=== PATIENT | male | born 1945 | race Caucasian/White ===

== ENCOUNTER 2023-06-06 23:18 | Emergency (ER) | payer MEDICARE, OTHER, SELFPAY ==
[2023-06-06 23:20] VITALS: BP 125/76; PULSE 109; RESP 26; TEMP 39.1; O2SAT 88; BMI 28.8
[2023-06-06 23:28] VITALS: BP 125/76; PULSE 110; RESP 24; TEMP 38.9; O2SAT 92
[2023-06-07] VITALS (7 sets, daily range): BP systolic 85–118; BP diastolic 55–71; PULSE 72–87; RESP 16–18; TEMP 36.6–36.9; O2SAT 2–99
--- NOTE | 2023-06-07 | EKG12_ITS ---
Test Reason : Blood Pressure : / mmHG Vent. Rate : 109 BPM Atrial Rate : 109 BPM P-R Int : 140 ms QRS Dur : 092 ms QT Int : 316 ms P-R-T Axes : 013 -30 017 degrees QTc Int : 425 ms Poor data quality, interpretation may be adversely affected Sinus tachycardia Left axis deviation Abnormal ECG Confirmed by ALIZA MIRANDA, SAMANTHA ([id number]), digital editor KVNG HOPKINS ([id number]) on 06/07/2023 12:21:14 PM Referred By: Confirmed By:SAMANTHA ABRAMS MD
--- NOTE | 2023-06-07 00:02 | ED.VIS.GI ---
HPI HPI - GI History of Present Illness Chief Complaint: Alt LOC Informant: patient and spouse/S.O. Nausea/Vomiting/Emesis GI Symptom: Positive for Nausea and Vomiting Onset: Days (3; occurred 3 days ago but not since) Quality: Positive for Nonbilious Diarrhea/Melena/Hematochezia GI Symptom: Negative for Diarrhea, Melena or Hematochezia Narrative Narrative: Patient had some vomiting a couple days ago, none since then but today he has been having chills/rigors and a fever at home up to 102, and feeling extremely weak to the point where he cannot stand even with assistance. Therefore family called EMS to have him brought and evaluated. He denies any cough or shortness of breath. He has had some nasal congestion but no other URI symptoms. He denies having any abdominal pain, trouble urinating, or abnormal bowel movements. No chest discomfort or upper back discomfort, but when asked about more details regarding pain, he states a couple days ago he did remember having some pain somewhere in his low back but it went away. He and states that several months ago he had a gallbladder surgery that was not completed, and he needs to be evaluated by a subspecialist to see if he is a candidate for a more complicated surgery to resect his gallbladder since it is attached to the intestine. [facility] Medical History (Updated 06/07/23 @ 01:[address] 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 Louann Montes MD) Mother Depression Hypertension Father Heart disease Alzheimer disease Surgical History (Updated 06/07/23 @ 00:[address] Louann Montes MD) History of lithotripsy S/P appendectomy S/P tonsillectomy and adenoidectomy Status post hernia repair Social History Smoking Status: Former smoker alcohol intake: current alcohol intake frequency: a few times a week substance use type: does not use ROS ROS ED Constitutional Constitutional ED: Reports chills, fatigue, fever(s) and lethargy Eyes Eyes: Denies change in vision or diplopia ENT ENT ED: Reports nasal congestion; Denies rhinorrhea or sore throat Cardiovascular Cardiovascular: Denies chest pain or palpitations Respiratory/Chest Respiratory/Chest: Denies cough or dyspnea Gastrointestinal Gastrointestinal: Reports nausea and vomiting; Denies abdominal pain or diarrhea Genitourinary Genitourinary ED: Denies dysuria or hematuria Musculoskeletal Musculoskeletal: Denies back pain or neck pain Integumentary Denies abscess or rash Neurologic Neurologic: Denies headache(s), paresthesias or weakness Psychiatric Psychiatric: Denies anxiety or suicidal thoughts EXAM Physical Exam Const Vital Signs: 06/06/23 23:20 06/06/23 23:28 06/06/23 23:32 Temperature 102.4 F H 102.1 F H Temperature Source Oral Oral Pulse Rate 109 H 110 H Respiratory Rate 26 H 24 H Respiratory Effort Normal Non-Labored Respiratory Pattern Normal Blood Pressure 125/76 H 125/76 H Blood Pressure Mean 92 92 Pulse Ox 88 92 Oxygen Delivery Method Room Air Nasal Cannula Oxygen Flow Rate (L/min) 2 06/07/23 00:06 06/07/23 03:31 06/07/23 05:04 Temperature 98.5 F Temperature Source Oral Pulse Rate 87 79 Respiratory Rate 18 17 Respiratory Effort Respiratory Pattern Blood Pressure 85/55 L 94/59 L Blood Pressure Mean 65 70 Pulse Ox 2 96 97 Oxygen Delivery Method Nasal Cannula Room Air Nasal Cannula Oxygen Flow Rate (L/min) 2 06/07/23 05:05 06/07/23 06:34 Temperature 97.9 F 97.8 F Temperature Source Oral Temporal Pulse Rate 72 87 Respiratory Rate 16 16 Respiratory Effort Respiratory Pattern Blood Pressure 94/59 L 100/60 Blood Pressure Mean 70 73 Pulse Ox 97 98 Oxygen Delivery Method Venturi Mask Oxygen Flow Rate (L/min) 2 Positive well nourished and well developed General Appearance ED: well developed and NAD HEENT Reports moist mucous membranes normocephalic and atraumatic Eyes PERRL and EOMs intact bilaterally Neck full ROM, no lymphadenopathy and supple Resp normal respiratory effort and clear to auscultation bilaterally Cardio regular rate, regular rhythm and no murmurs Rate: tachycardic GI non-distended GI Narrative: Mild tenderness without guarding or rebound across the lower abdomen, no right upper quadrant tenderness. No jaundice. Auscultation: normoactive bowel sounds Palpation: soft Back/Spine no CVA tenderness General Back: other FROM Extremity normal to inspection General Extremety ED: Negative for edema, pulses abnormal or tenderness General Extremity: Negative for edema or pulses abnormal Neuro oriented x3, CN's II-XII intact bilaterally and no sensory deficits noted Neuro Narrative: Extremely weak, diffuse and nonlateralizing. Sensorium / Orientation: awake and alert Motor Exam: general weakness Skin no rashes or lesions noted and no wounds MDM MDM MDM Narrative Medical decision making narrative: Septic work-up obtained, in addition to getting liver enzymes due to the patient's presenting gallbladder issues. He has a mild leukocytosis, his urine appears to be potentially the source, as the 1 view chest x-ray on my interpretation negative for pneumonia, radiology in agreement, but I also did send him for a CT of the abdomen/pelvis. He has a history of IV contrast dye reaction, so we did it without contrast. I reviewed the images and the report and I agree with it, basically consistent with right ureterolithiasis but it is a fairly large stone at 12 X 10 mm, with moderate right-sided hydronephrosis even though he clinically does not have any CVA tenderness. We do not have any male urology coverage tonight/this weekend, and the patient sees Dr. Seaman at [facility] for urology. He was given IV fluids here, fever reduction, and empiric Rocephin for antibiotics. His lactate is within normal limits. He is okay trying to go to [facility] to see his urologist since we do not have one here. I discussed with Dr. Seaman. He agrees the patient needs to be transferred and maintained n.p.o. so that he can place a stent in the morning at [facility]. He asked that we call the hospitalist for admission/acceptance. In doing this, the hospital tells us that they do not have any available beds and are not able to accept him right now. Given that his urologist is relatively local and available to perform the recommended urgent procedure, we will continue to care for him under observation, starting at 0245, in our department until they have a bed available, as they have accepted the patient for transfer when they do have an open available bed, but do not want to take him in their ED at this time. In observing the patient he was given more IV fluids, temperatures come down to 97.9, blood pressure 100/66, patient is feeling fairly well, better. Discussed again with Dr. Seaman around 7 AM since we had not heard anything from anyone, he was expecting to take the patient to the OR at 7:30 AM. He has a limited timeframe that he can take the patient, he states he is accepting the patient directly to same-day surgery, so staff is trying to make calls to get him transported there [facility]. History & Record Review Additional record(s) reviewed:: No prior records (No records available at our facility) Lab Data Attestation: I reviewed the patient's lab results. Labs: Laboratory Results - last 24 hr 06/06/23 06/06/23 06/06/23 23:35 23:35 23:35 WBC 11.4 H RBC 4.68 Hgb 13.7 Hct 41.1 MCV 87.8 MCH 29.3 MCHC 33.3 RDW Std Deviation 46.2 H RDW Coeff of Jonna 14.6 Plt Count 137 L MPV 10.0 Immature Gran % (Auto) 1.200 H Neut % (Auto) 95.4 H Lymph % (Auto) 2.5 L Mills % (Auto) 0.8 Eos % (Auto) 0.0 Baso % (Auto) 0.1 Absolute Neuts (auto) 10.8 H Absolute Lymphs (auto) 0.28 L Nucleated RBC % 0 Differential Comment SCANNED PT 17.3 H INR 1.4 APTT 38.2 H Sodium 135 L Cancelled Potassium 3.4 L Cancelled Chloride 105 Carbon Dioxide Anion Gap BUN Creatinine Estim Creat Clear Calc Est GFR (MDRD) Af Amer Est GFR (MDRD) Non-Af BUN/Creatinine Ratio Glucose Lactic Acid Calcium Total Bilirubin AST ALT Alkaline Phosphatase Total Protein Albumin Globulin Albumin/Globulin Ratio Lipase Urine Color Urine Clarity Urine pH Ur Specific Basalt Urine Protein Urine Glucose (UA) Urine Ketones Urine Occult Blood Urine Nitrite Urine Bilirubin Urine Urobilinogen Ur Leukocyte Esterase Urine RBC Urine WBC Ur Squamous Epith Cells Urine Bacteria Urine Mucus 06/06/23 06/06/23 06/06/23 23:35 23:35 23:35 WBC RBC Hgb Hct MCV MCH MCHC RDW Std Deviation RDW Coeff of Jonna Plt Count MPV Immature Gran % (Auto) Neut % (Auto) Lymph % (Auto) Mills % (Auto) Eos % (Auto) Baso % (Auto) Absolute Neuts (auto) Absolute Lymphs (auto) Nucleated RBC % Differential Comment PT INR APTT Sodium Potassium Chloride Cancelled Carbon Dioxide 23.0 Cancelled Anion Gap 7 Cancelled BUN 29 H Creatinine Estim Creat Clear Calc Est GFR (MDRD) Af Amer Est GFR (MDRD) Non-Af BUN/Creatinine Ratio Glucose Lactic Acid Calcium Total Bilirubin AST ALT Alkaline Phosphatase Total Protein Albumin Globulin Albumin/Globulin Ratio Lipase Urine Color Urine Clarity Urine pH Ur Specific Basalt Urine Protein Urine Glucose (UA) Urine Ketones Urine Occult Blood Urine Nitrite Urine Bilirubin Urine Urobilinogen Ur Leukocyte Esterase Urine RBC Urine WBC Ur Squamous Epith Cells Urine Bacteria Urine Mucus 06/06/23 06/06/23 06/06/23 23:35 23:35 23:35 WBC RBC Hgb Hct MCV MCH MCHC RDW Std Deviation RDW Coeff of Jonna Plt Count MPV Immature Gran % (Auto) Neut % (Auto) Lymph % (Auto) Mills % (Auto) Eos % (Auto) Baso % (Auto) Absolute Neuts (auto) Absolute Lymphs (auto) Nucleated RBC % Differential Comment PT INR APTT Sodium Potassium Chloride Carbon Dioxide Anion Gap BUN Cancelled Creatinine 1.77 H Cancelled Estim Creat Clear Calc 34.35 Cancelled Est GFR (MDRD) Af Amer 48 L Est GFR (MDRD) Non-Af BUN/Creatinine Ratio Glucose Lactic Acid Calcium Total Bilirubin AST ALT Alkaline Phosphatase Total Protein Albumin Globulin Albumin/Globulin Ratio Lipase Urine Color Urine Clarity Urine pH Ur Specific Basalt Urine Protein Urine Glucose (UA) Urine Ketones Urine Occult Blood Urine Nitrite Urine Bilirubin Urine Urobilinogen Ur Leukocyte Esterase Urine RBC Urine WBC Ur Squamous Epith Cells Urine Bacteria Urine Mucus 06/06/23 06/06/23 06/06/23 23:35 23:35 23:35 WBC RBC Hgb Hct MCV MCH MCHC RDW Std Deviation RDW Coeff of Jonna Plt Count MPV Immature Gran % (Auto) Neut % (Auto) Lymph % (Auto) Mills % (Auto) Eos % (Auto) Baso % (Auto) Absolute Neuts (auto) Absolute Lymphs (auto) Nucleated RBC % Differential Comment PT INR APTT Sodium Potassium Chloride Carbon Dioxide Anion Gap BUN Creatinine Estim Creat Clear Calc Est GFR (MDRD) Af Amer Cancelled Est GFR (MDRD) Non-Af 40 L Cancelled BUN/Creatinine Ratio 16.4 Cancelled Glucose 184 H Lactic Acid Calcium Total Bilirubin AST ALT Alkaline Phosphatase Total Protein Albumin Globulin Albumin/Globulin Ratio Lipase Urine Color Urine Clarity Urine pH Ur Specific Basalt Urine Protein Urine Glucose (UA) Urine Ketones Urine Occult Blood Urine Nitrite Urine Bilirubin Urine Urobilinogen Ur Leukocyte Esterase Urine RBC Urine WBC Ur Squamous Epith Cells Urine Bacteria Urine Mucus 06/06/23 06/06/23 06/06/23 23:35 23:35 23:35 WBC RBC Hgb Hct MCV MCH MCHC RDW Std Deviation RDW Coeff of Jonna Plt Count MPV Immature Gran % (Auto) Neut % (Auto) Lymph % (Auto) Mills % (Auto) Eos % (Auto) Baso % (Auto) Absolute Neuts (auto) Absolute Lymphs (auto) Nucleated RBC % Differential Comment PT INR APTT Sodium Potassium Chloride Carbon Dioxide Anion Gap BUN Creatinine Estim Creat Clear Calc Est GFR (MDRD) Af Amer Est GFR (MDRD) Non-Af BUN/Creatinine Ratio Glucose Cancelled Lactic Acid 1.8 Calcium 8.9 Cancelled Total Bilirubin 1.40 H Cancelled AST 31 ALT Alkaline Phosphatase Total Protein Albumin Globulin Albumin/Globulin Ratio Lipase Urine Color Urine Clarity Urine pH Ur Specific Basalt Urine Protein Urine Glucose (UA) Urine Ketones Urine Occult Blood Urine Nitrite Urine Bilirubin Urine Urobilinogen Ur Leukocyte Esterase Urine RBC Urine WBC Ur Squamous Epith Cells Urine Bacteria Urine Mucus 06/06/23 06/06/23 06/06/23 23:35 23:35 23:35 WBC RBC Hgb Hct MCV MCH MCHC RDW Std Deviation RDW Coeff of Jonna Plt Count MPV Immature Gran % (Auto) Neut % (Auto) Lymph % (Auto) Mills % (Auto) Eos % (Auto) Baso % (Auto) Absolute Neuts (auto) Absolute Lymphs (auto) Nucleated RBC % Differential Comment PT INR APTT Sodium Potassium Chloride Carbon Dioxide Anion Gap BUN Creatinine Estim Creat Clear Calc Est GFR (MDRD) Af Amer Est GFR (MDRD) Non-Af BUN/Creatinine Ratio Glucose Lactic Acid Calcium Total Bilirubin AST Cancelled ALT 33 Cancelled Alkaline Phosphatase 83 Cancelled Total Protein 6.9 Albumin Globulin Albumin/Globulin Ratio Lipase Urine Color Urine Clarity Urine pH Ur Specific Basalt Urine Protein Urine Glucose (UA) Urine Ketones Urine Occult Blood Urine Nitrite Urine Bilirubin Urine Urobilinogen Ur Leukocyte Esterase Urine RBC Urine WBC Ur Squamous Epith Cells Urine Bacteria Urine Mucus 06/06/23 06/06/23 06/06/23 23:35 23:35 23:35 WBC RBC Hgb Hct MCV MCH MCHC RDW Std Deviation RDW Coeff of Jonna Plt Count MPV Immature Gran % (Auto) Neut % (Auto) Lymph % (Auto) Mills % (Auto) Eos % (Auto) Baso % (Auto) Absolute Neuts (auto) Absolute Lymphs (auto) Nucleated RBC % Differential Comment PT INR APTT Sodium Potassium Chloride Carbon Dioxide Anion Gap BUN Creatinine Estim Creat Clear Calc Est GFR (MDRD) Af Amer Est GFR (MDRD) Non-Af BUN/Creatinine Ratio Glucose Lactic Acid Calcium Total Bilirubin AST ALT Alkaline Phosphatase Total Protein Cancelled Albumin 3.2 Cancelled Globulin 3.7 Cancelled Albumin/Globulin Ratio 0.9 Lipase Urine Color Urine Clarity Urine pH Ur Specific Basalt Urine Protein Urine Glucose (UA) Urine Ketones Urine Occult Blood Urine Nitrite Urine Bilirubin Urine Urobilinogen Ur Leukocyte Esterase Urine RBC Urine WBC Ur Squamous Epith Cells Urine Bacteria Urine Mucus 06/06/23 23:35 WBC RBC Hgb Hct MCV MCH MCHC RDW Std Deviation RDW Coeff of Jonna Plt Count MPV Immature Gran % (Auto) Neut % (Auto) Lymph % (Auto) Mills % (Auto) Eos % (Auto) Baso % (Auto) Absolute Neuts (auto) Absolute Lymphs (auto) Nucleated RBC % Differential Comment PT INR APTT Sodium Potassium Chloride Carbon Dioxide Anion Gap BUN Creatinine Estim Creat Clear Calc Est GFR (MDRD) Af Amer Est GFR (MDRD) Non-Af BUN/Creatinine Ratio Glucose Lactic Acid Calcium Total Bilirubin AST ALT Alkaline Phosphatase Total Protein Albumin Globulin Albumin/Globulin Ratio Cancelled Lipase 16 Urine Color Yellow Urine Clarity Cloudy Urine pH 6.0 Ur Specific Basalt 1.020 Urine Protein 100 H Urine Glucose (UA) Normal Urine Ketones 15 H Urine Occult Blood 250 H Urine Nitrite Negative Urine Bilirubin Negative Urine Urobilinogen 1 H Ur Leukocyte Esterase 500 H Urine RBC 50-100 SEEN Urine WBC >100 SEEN Ur Squamous Epith Cells 0 SEEN Urine Bacteria 3+ Urine Mucus 0 SEEN Radiography Diagnostic Testing: Clinical Impression(s) from Imaging Studies Abdomen/Pelvis CT 06/07/23 00:47 IMPRESSION: 1. 12 x 10 mm right ureteropelvic junction calculus resulting in mild to moderate right-sided hydronephrosis. 2. Additional nonobstructing bilateral renal calculi. 3. Simple appearing bilateral renal cysts. No further follow-up is necessary. 4. Peripherally calcified structures in the joyce hepatis, potentially representing choledocholithiasis. Dedicated MRCP imaging is recommended for further evaluation. 5. Descending and sigmoid colonic diverticulosis without evidence of acute diverticulitis. 6. Emphysematous change of the lung bases with bibasilar scar versus atelectasis 7. Small fat-containing umbilical hernia without bowel involvement. Electronically Signed: Dennys Kent MD at 1:26 EDT , Chest X-Ray 06/07/23 01:00 IMPRESSION: No acute cardiopulmonary disease Electronically Signed: Dennys Kent MD at 1:13 EDT , Rhythm Strip Rhythm Strip: Sinus Tach Rate: 110 Ectopy: None EKG Initial EKG: Attestation: I personally reviewed and interpreted this EKG as follows: Interpretation: No Acute Injury Pattern and Sinus Tachycardia Management Discussion w/another healthcare provider: Medical Registrar Discharge Plan Triage Chief Complaint: Alt LOC ED Provider: Anselmo Rodriguez Dx/Rx/DC Orders Clinical Impression: Complicated UTI (urinary tract infection), Ureterolithiasis, Sepsis Prescriptions: No Action tamsulosin [Flomax] 0.4 mg capsule 0.4 mg PO DAILY Lumigan 0.01 % drops 1 drp EACH EYE DAILY Primary Care Provider: Josy Cummings Referrals: Josy Cummings, [Primary Care Provider] - Disposition Disposition: Acute Care Hospital [facility]
[2023-06-07 00:12] LABS: Mucous, Urine 0 SEEN /hpf (<or=2+); Squamous Epithelial Cells - UA 0 SEEN /hpf (0-5)
[2023-06-07 00:13] LABS: Color, Urine Yellow (Yellow); Glucose, Dipstick Normal (Normal); Ketone-Dipstick 15 mg/dl (Negative); Leukocyte Esterase-Dipstick 500 /ul (Negative); Nitrite-Dipstick Negative (Negative); Occult Blood-Urine 250 /ul (Negative); Protein-Dipstick 100 mg/dl (Negative); Urine Bilirubin Dipstick Negative (Negative); Urine Clarity Cloudy (Clear); Urine Urobilinogen 1 mg/dl (Normal)
[2023-06-07] MEDS: 0.9% Normal Saline (1000mL) 1,000 ML 999 ML IV ×2 (00:17→03:28)
[2023-06-07] MEDS: Acetaminophen 500 MG Tablet 1000 MG PO (00:17)
[2023-06-07 00:18] LABS: Bacteria 3+ /hpf (None Seen); Red Blood Cells-Urine 50-100 SEEN /hpf (0-5); White Blood Cells >100 SEEN /hpf (0-5)
[2023-06-07 00:22] LABS: International Normalized Ratio 1.4; Prothrombin Time (Protime)PT. 17.3 SECONDS (11.7-14.9)
[2023-06-07 00:24] LABS: Partial Thromboplast Time 38.2 Seconds (24.1-36.2)
[2023-06-07 00:29] LABS: Absolute Lymphocyte Count 0.28 X10^3/uL (0.83-4.51); Absolute Neutrophil Count 10.8 X10^3/uL (2.0-7.7); Basophil# 0.01 X10^3/uL; Basophil% 0.1 % (0-1); Hematocrit 41.1 % (40-54); Hemoglobin 13.7 g/dL (13.0-16.5); Lymphocyte # 0.28 X10^3/ul (0.83-4.51); Lymphocyte % 2.5 % (19-41); Mean Corp Hgb Conc 33.3 g/dL (32-36); Mean Corpuscular Hgb 29.3 pg (27.0-32.0); Mean Corpuscular Volume 87.8 fL (80-94); Monocyte# 0.09 X10^3/uL; Monocyte% 0.8 % (0-10); NRBC Flagged by Analyzer 0 % (0-5); Neutrophil # 10.83 X10^3/uL (2.7-7.7); Neutrophil % 95.4 % (47-70); POSITIVE DIFFERENTIAL YES; POSITIVE MORPHOLOGY YES; Platelet Count 137 K/mm3 (150-450); RBC Distribution Width CV 14.6 % (11.6-14.6); RBC Distribution Width SD 46.2 fl (35.1-43.9); Red Blood Count 4.68 M/mm3 (4.6-6.2); White Blood Count 11.4 K/mm3 (4.4-11.0)
[2023-06-07 00:30] LABS: ALB/GLOB Ratio 0.9 RATIO (0.9-2.4); AST(SGOT) 31 U/L (15-37); Alanine Aminotransfer ALT/SGPT 33 U/L (16-61); Albumin, Serum 3.2 g/dL (3.2-5.0); Alkaline Phosphatase 83 U/L (45-117); Anion Gap 7 (5-15); BUN 29 mg/dL (7-18); BUN/Creat Ratio 16.4 RATIO (10-20); Calcium,Total 8.9 mg/dL (8.5-10.1); Chloride 105 mmol/L (98-107); Creatinine, Serum 1.77 mg/dL (0.70-1.30); EST Glomerular Filtration Rate 40 mL/min (>60); Est Glom Filt Rate - Afr Amer 48 mL/min (>60); Estimated Creatinine Clearance 34.35 ml/min; Globulin 3.7 g/dL (2.2-4.2); Glucose 184 mg/dL (74-106); Lactic Acid 1.8 mmol/L (0.4-1.9); Lipase 16 U/L (13-75); Potassium 3.4 mmol/L (3.5-5.1); Protein, Total 6.9 g/dL (6.4-8.2); Sodium Level 135 mmol/L (136-145)
[2023-06-07 00:34] LABS: Differential Indicated SCAN CRITERIA MET
--- NOTE | 2023-06-07 00:47 | CT_ITS ---
STUDY: CT ABDOMEN AND PELVIS WITH CONTRAST REASON FOR EXAM: Male, 77 years old. Lower abdominal pain, nausea and vomiting RADIATION DOSAGE (If Supplied By Facility): CTDIvol = ( 9.46 ) mGy, DLP = ( 546.09 ) mGycm TECHNIQUE: Spiral CT imaging of the abdomen and pelvis was performed with intravenous contrast material (100mL Isovue-370 / ), followed by coronal and sagittal reformatting. Individualized dose optimization techniques were used for this CT. COMPARISON: No relevant priors. FINDINGS: LOWER CHEST: Bilateral dependent atelectasis versus scar formation at the lung bases. Mild emphysematous change at the lung bases. Normal heart. Normal pericardium. LIVER: Normal GALLBLADDER AND BILIARY TREE: Gallbladder is surgically absent. There are rounded hyperdensities in the joyce hepatis with central hypoattenuation.. Normal biliary ductal system. SPLEEN: Normal PANCREAS: Normal ADRENAL GLANDS: Normal KIDNEYS AND URETERS: There are hypoattenuated lesions within both kidneys measuring near water density. There is mild to moderate right perinephric stranding. There is mild to moderate right-sided hydronephrosis. There is a staghorn calculus within the mid right renal pelvis. There is a 1.2 x 1.0 cm calculus at the right ureteropelvic junction. The remaining ureter is unremarkable. There are calcifications within the left renal pelvic calyceal system. There is an extrarenal pelvis on the left. BOWEL: There is a small to moderate hiatal hernia. Normal small bowel. Normal appendix. There is diverticular disease of descending and sigmoid colonic segments without localized inflammation.. PERITONEUM: No free intraperitoneal air or fluid. No intra-abdominal fluid collection. LYMPH NODES: No mesenteric, retroperitoneal, or pelvic lymphadenopathy. VESSELS: Mild atherosclerotic plaque within the abdominal vasculature. URINARY BLADDER: Normal REPRODUCTIVE ORGANS: Normal ABDOMINAL WALL: Small fat-containing umbilical hernia without bowel involvement. BONES: Normal CT/Abdomen/Pelvis without Cont IMPRESSION: 1. 12 x 10 mm right ureteropelvic junction calculus resulting in mild to moderate right-sided hydronephrosis. 2. Additional nonobstructing bilateral renal calculi. 3. Simple appearing bilateral renal cysts. No further follow-up is necessary. 4. Peripherally calcified structures in the joyce hepatis, potentially representing choledocholithiasis. Dedicated MRCP imaging is recommended for further evaluation. 5. Descending and sigmoid colonic diverticulosis without evidence of acute diverticulitis. 6. Emphysematous change of the lung bases with bibasilar scar versus atelectasis 7. Small fat-containing umbilical hernia without bowel involvement. Electronically Signed: Dennys Kent MD at 1:26 EDT ,
--- NOTE | 2023-06-07 01:00 | RAD_ITS ---
EXAM: XR Chest 1 View INDICATION: Male, 77 years old. Fever. Vomiting. TECHNIQUE: Single AP view COMPARISON: None FINDINGS: DEVICES: None LUNGS: No confluent air space opacity. No concerning pulmonary nodule. No pleural effusion or pneumothorax. MEDIASTINUM: Borderline cardiomegaly. Mediastinal silhouette is within normal limits.. No central pulmonary vascular congestion. Calcification of the aortic arch. SKELETAL STRUCTURES: No acute skeletal abnormality. Mild multilevel degenerative change of the spine. UPPER ABDOMEN: Unremarkable RAD/Chest 1 View (Portable) IMPRESSION: No acute cardiopulmonary disease Electronically Signed: Dennys Kent MD at 1:13 EDT ,
[2023-06-07 01:02] LABS: Differential Comment SCANNED
[2023-06-07] MEDS: Ceftriaxone 1 GM/50 ML BAG IV (02:03)
--- NOTE | 2023-06-07 07:10 | NURSING ---
CALLED DR GUERRIER'S OFFICE. LEFT A MESSAGE
--- NOTE | 2023-06-07 07:11 | NURSING ---
CALLED [facility]. HAD DR FAREED KARIMI
--- NOTE | 2023-06-07 07:25 | NURSING ---
CALLED [facility], ETA IS 30 TO 45 MIN
[2023-06-07] MEDS: fentaNYL 100 MCG/2 ML Ampul 25 MCG IV (08:13)
--- NOTE | 2023-06-07 20:10 | ED.RN ---
lab called with critical lab results. blood cultures positive for gram negative rods, spoke with Dr. Echevarria suggesting patient presents back to the ER or [facility] for treatment
== END 2023-06-07 08:34 | disposition short-term general hospital (02) ==
PROVIDERS: Emergency Provider Emergency Medicine; PCP Internal Medicine; Visit Provider Emergency Medicine
DX: N13.6 Pyonephrosis (principal); Z87.891 Personal history of nicotine dependence
CPT/HCPCS: 99285; 71045; 74176; 80053; 81001; 83605; 83690; 85025; 85610; 85730; 87040; 87077; 87086; 87088; 87186; 87811; 93005; J7030; A4216

== ENCOUNTER 2023-06-07 21:55 | Inpatient (IN) | payer MEDICARE, OTHER, SELFPAY ==
[2023-06-07 21:56] VITALS: BP 111/74; PULSE 78; RESP 17; TEMP 36.4; O2SAT 96
[2023-06-07 23:15] VITALS: RESP 16; O2SAT 99
[2023-06-07 23:26] LABS: Absolute Lymphocyte Count 0.46 X10^3/uL (0.83-4.51); Absolute Neutrophil Count 12.5 X10^3/uL (2.0-7.7); Basophil# 0.02 X10^3/uL; Basophil% 0.1 % (0-1); Hematocrit 36.5 % (40-54); Lymphocyte # 0.46 X10^3/ul (0.83-4.51); Lymphocyte % 3.4 % (19-41); Mean Corp Hgb Conc 32.9 g/dL (32-36); Mean Corpuscular Hgb 29.2 pg (27.0-32.0); Mean Corpuscular Volume 88.8 fL (80-94); Mean Platelet Vol. 10.8 fl (6.2-12.0); Monocyte# 0.42 X10^3/uL; Monocyte% 3.1 % (0-10); NRBC Flagged by Analyzer 0 % (0-5); Neutrophil % 92.4 % (47-70); POSITIVE DIFFERENTIAL YES; Platelet Count 118 K/mm3 (150-450); RBC Distribution Width CV 14.8 % (11.6-14.6); RBC Distribution Width SD 48.3 fl (35.1-43.9); Red Blood Count 4.11 M/mm3 (4.6-6.2); White Blood Count 13.5 K/mm3 (4.4-11.0)
--- NOTE | 2023-06-07 23:29 | EDS_ITS ---
HPI History of Present Illness Chief Complaint: Abn Labs Informant: patient Narrative Narrative: Patient asked to come back because of positive blood cultures. He is feeling much better than he was yesterday. He was seen here last night by myself, transferred to [facility] for a large kidney stone associated with infection and high fevers, as blood cultures returned positive. He received a stent early this morning in the right ureter, and has been doing much better ever since. He is on Pyridium. He is having no pain in his abdomen, flank, back. He is not urinating blood. He does not have any issues urinating. He still feels a little malaised and weak but is much better overall with no more fevers. [facility] Medical History (Updated 06/08/23 @ 01:40 by Elaine Ramires) Asthma Back pain due to injury BPH (benign prostatic hyperplasia) Cholelithiasis with chronic cholecystitis without biliary obstruction GERD (gastroesophageal reflux disease) GERD (gastroesophageal reflux disease) Glaucoma Hearing loss, left Hearing loss, right Kidney disease Kidney stones Raynauds disease Home Medications bimatoprost 0.01 % eye drops (Lumigan) 1 drp EACH EYE DAILY eyes 06/06/23 [History Last Taken Unknown] tamsulosin 0.4 mg capsule (Flomax) 0.4 mg PO DAILY prostate 06/06/23 [History Last Taken Unknown] HYDROcodone-acetaminophen pain 06/08/23 [History Last Taken Unknown] amlodipine 2.5 mg tablet 2.5 mg PO PRN raynauds 06/08/23 [History Last Taken Unknown] ciprofloxacin HCl 500 mg tablet 500 mg PO BID bladd 06/08/23 [History Last Taken Unknown] esomeprazole magnesium 40 mg capsule,delayed release 40 mg PO Q24H stomach 06/08/23 [History Last Taken Unknown] netarsudil 0.02 % eye drops (Rhopressa) drp ophthalmic (eye) QHS rt eye only 06/08/23 [History Last Taken Unknown] phenazopyridine 200 mg tablet (Pyridium) 200 mg PO BID PRN bladder spasms 06/08/23 [History Last Taken Unknown] Allergy/AdvReac Type Severity Reaction Status Date / Time bee venom protein (honey bee) Allergy Intermediate Anaphylaxis Verified 06/07/23 21:58 iv contrast Allergy Mild NEEDS Uncoded 06/07/23 00:40 FOLLOW-UP Family History Mother Depression Hypertension Father Heart disease Alzheimer disease Surgical History History of lithotripsy S/P appendectomy S/P tonsillectomy and adenoidectomy Status post hernia repair Social History (Updated 06/07/23 @ 23:[address] Louann Montes MD) household members: spouse Smoking Status: Former smoker alcohol intake: current alcohol intake frequency: a few times a week substance use type: does not use ROS ROS ED Constitutional Constitutional ED: Reports malaise; Denies chills or fever(s) Eyes Eyes: Denies change in vision or diplopia ENT ENT ED: Denies rhinorrhea or sore throat Cardiovascular Cardiovascular: Denies chest pain or palpitations Respiratory/Chest Respiratory/Chest: Denies cough or dyspnea Gastrointestinal Gastrointestinal: Denies abdominal pain, diarrhea, nausea or vomiting Genitourinary Genitourinary ED: Denies dysuria or hematuria Musculoskeletal Musculoskeletal: Denies back pain or neck pain Integumentary Denies abscess or rash Neurologic Neurologic: Denies headache(s), paresthesias or weakness Psychiatric Psychiatric: Denies anxiety or suicidal thoughts EXAM Physical Exam Const Vital Signs: 06/07/23 21:56 06/07/23 23:15 06/07/23 23:15 Temperature 97.6 F L Temperature Source Temporal Pulse Rate 78 Respiratory Rate 17 16 Blood Pressure 111/74 Blood Pressure Mean 86 Pulse Ox 96 99 99 Oxygen Delivery Method Room Air Room Air Room Air Positive well nourished and well developed General Appearance ED: well developed and NAD HEENT Reports moist mucous membranes normocephalic and atraumatic Eyes PERRL and EOMs intact bilaterally Neck full ROM and supple Resp normal respiratory effort and clear to auscultation bilaterally Cardio regular rate, regular rhythm and no murmurs GI non-tender and non-distended Auscultation: normoactive bowel sounds Palpation: soft Back/Spine no CVA tenderness General Back: other FROM Extremity normal to inspection General Extremety ED: Negative for edema, pulses abnormal or tenderness General Extremity: Negative for edema or pulses abnormal Neuro oriented x3, CN's II-XII intact bilaterally and no sensory deficits noted Sensorium / Orientation: awake and alert Motor Exam: strength 5/5 throughout Skin no rashes or lesions noted and no wounds MDM MDM MDM Narrative Medical decision making narrative: I reviewed prior results, the blood culture in the anaerobic bottle shows gram- negative bacilli and the rest of the details are still pending. If this is E. coli could certainly be from the urine which we diagnosed yesterday. He is given Rocephin and will be admitted. At this time he is clinically and hemodynamically stable with normal vital signs, benign exam, and is not clinically septic. Lab Data Attestation: I reviewed the patient's lab results. Labs: Laboratory Results - last 24 hr 06/07/23 06/07/23 23:10 23:25 WBC 13.5 H RBC 4.11 L Hgb 12.0 L Hct 36.5 L MCV 88.8 MCH 29.2 MCHC 32.9 RDW Std Deviation 48.3 H RDW Coeff of Jonna 14.8 H Plt Count 118 L MPV 10.8 Immature Gran % (Auto) 1.000 H Neut % (Auto) 92.4 H Lymph % (Auto) 3.4 L Izard % (Auto) 3.1 Eos % (Auto) 0.0 Baso % (Auto) 0.1 Absolute Neuts (auto) 12.5 H Absolute Lymphs (auto) 0.46 L Nucleated RBC % 0 Differential Comment SCANNED Sodium 138 Potassium 3.8 Chloride 110 H Carbon Dioxide 22.0 Anion Gap 6 BUN 32 H Creatinine 1.40 H Est GFR (MDRD) Af Amer 63 Est GFR (MDRD) Non-Af 52 L BUN/Creatinine Ratio 22.9 H Glucose 170 H Lactic Acid 1.6 Calcium 8.9 Magnesium 2.2 Management Discussion w/another healthcare provider: Hospitalist Discharge Plan Dx/Rx/DC Orders Clinical Impression: Complicated UTI (urinary tract infection), Bacteremia due to Gram-negative bacteria Disposition Disposition: Acute Care Hospital [facility] Discharge Date/Time: 06/08/23 01:15
[2023-06-07 23:31] LABS: Anion Gap 6 (5-15); BUN 32 mg/dL (7-18); BUN/Creat Ratio 22.9 RATIO (10-20); Calcium,Total 8.9 mg/dL (8.5-10.1); Chloride 110 mmol/L (98-107); EST Glomerular Filtration Rate 52 mL/min (>60); Est Glom Filt Rate - Afr Amer 63 mL/min (>60); Glucose 170 mg/dL (74-106); Potassium 3.8 mmol/L (3.5-5.1); Sodium Level 138 mmol/L (136-145)
--- NOTE | 2023-06-07 23:44 | PCM.HP.STD ---
HPI - General General Date of Admission: 06/07/23 Date of Service: 06/07/23 Chief Complaint: Abnormal Bld Cx, called to return to ED. HPI Narrative The patient is a 77 y/o M w/ PMHx: Glaucoma, BPH, Raynauds disease, Former tobacco use, GERD, Cholelithiasis with chronic cholecystitis without biliary obstruction, recent ED presentation 06/06/2023 with onset of encephalopathy as well as nausea and emesis ongoing for approximately 3 days with then onset of rigors and chills with fever up to 102 at home with significant weakness and debility prompting family to call EMS with diagnosis at that time of acute kidney injury, acute complicated urinary tract infection as well as obstructing right ureteropelvic junction calculus causing mild to moderate right-sided hydronephrosis with eventual transfer 06/07/2023 early a.m. to [facility] where the patient's urologist practices Dr. Seaman reportedly having what would be assumed a right-sided stent placement and for some reason patient despite the fact he had a complicated UTI and acute kidney injury also was discharged to home and now represents to the [facility] ED on 06/07/23 secondary to being called with blood culture x2 positive. He notes pain since stent placement completely resolved. Recent ED evaluation 06/06/2023 with at that time temperature 102.4, heart rate 110, BP dropping to 85/55 requiring IV fluids and prior to transition to outside facility increased up to 118/71, initially respiratory rate 26 noted to be 88% on room air and upon transition to outside facility respiratory rate 18, 99% on room air, CBC with WBC 11.4, hemoglobin 13.7, platelet 137 with left shift and lymphopenia, coags with PT 17.3, PTT 38.2 otherwise not marked appearing, CMP with sodium 135, potassium 3.4, BUN/creatinine 29/1.77, glucose 184, lactic acid 1.8, T. bili 1.40 otherwise hepatic profile not marked appearing, lipase 16, urinalysis highly concerning for urinary tract infection with urine culture pending still at this time and blood cultures x2 obtained, rapid SARS COVID-negative, chest x-ray with no acute cardiopulmonary findings, CT A/P with 12 x 10 mm right ureteropelvic junction calculus resulting in mild to moderate right-sided hydronephrosis, additional nonobstructing bilateral renal calculi, simple appearing bilateral renal cysts, peripherally calcified structures in the joyce hepatis potentially representing choledocholithiasis with recommended follow-up MRCP, descending and sigmoid colonic diverticulosis without diverticulitis evident, emphysematous changes at the lung bases with bibasilar scarring versus atelectasis, small fat-containing umbilical hernia without bowel involvement, EKG with sinus tachycardia with no acute evidence of ischemia. Patient was administered IV Rocephin and serial IV fluid boluses secondary to hypotension. Patient's urologist Dr. Seaman was contacted given he has been under his care and is known to his service with transition eventually ER to the OR at [facility] as a same-day surgery patients. Patient upon current presentation with T97.6, heart rate 78, BP 111/74, respiratory rate 17, 96% on room air, current micro with blood culture preliminarily x 2 with noted gram-negative bacilli, BMP with chloride 110, BUN/creatinine 22/1.40, glucose 170, Lactic acid, repeat Bld Cx x 2 and CBC pending upon requested evaluation of patient. In the ED patient readministered IV rocephin and judicious IVFs. [facility] Medical History BPH (benign prostatic hyperplasia) Cholelithiasis with chronic cholecystitis without biliary obstruction GERD (gastroesophageal reflux disease) Glaucoma Raynauds disease Home Medications bimatoprost 0.01 % eye drops (Lumigan) 1 drp EACH EYE DAILY 06/06/23 [History Last Taken Unknown] tamsulosin 0.4 mg capsule (Flomax) 0.4 mg PO DAILY 06/06/23 [History Last Taken Unknown] Allergy/AdvReac Type Severity Reaction Status Date / Time bee venom protein (honey bee) Allergy Intermediate Anaphylaxis Verified 06/07/23 21:58 iv contrast Allergy Mild NEEDS Uncoded 06/07/23 00:40 FOLLOW-UP Family History Mother Depression Hypertension Father Heart disease Alzheimer disease Surgical History History of lithotripsy S/P appendectomy S/P tonsillectomy and adenoidectomy Status post hernia repair Social History (Updated 06/07/23 @ 23:[address] Louann Montes MD) household members: spouse Smoking Status: Former smoker alcohol intake: current alcohol intake frequency: a few times a week substance use type: does not use ROS ROS Narrative Admission Review of Systems: CONSTITUTIONAL: No weight loss, + fever, chills previously now resolved, weakness or fatigue. HEENT: + Chronic glaucoma on several drops, mild rhinorrhea. Eyes: No visual loss, blurred vision, double vision or yellow sclerae. Ears, Nose, Throat: No hearing loss, sneezing, congestion, sore throat. SKIN: No rash or itching, lesions, wounds. CARDIOVASCULAR: No chest pain, chest pressure or chest discomfort, palpitations, edema, orthopnea, syncopal events. RESPIRATORY: No shortness of breath, cough or sputum, wheezing, hemoptysis. GASTROINTESTINAL: + anorexia, mild flank discomfort previously now resolved. No nausea, vomiting or diarrhea, abdominal pain, melena, BRBPR. GENITOURINARY: No dysuria, frequency, urgency or retention. NEUROLOGICAL: No headache, dizziness, syncope, paralysis, ataxia, numbness or tingling in the extremities, focal weakness, change in bowel or bladder control, seizure. MUSCULOSKELETAL: + muscle, back pain, joint pain or stiffness. HEMATOLOGIC: No anemia, bleeding or bruising. LYMPHATICS: No enlarged nodes. No history of splenectomy. PSYCHIATRIC: No history of depression or anxiety. ENDOCRINOLOGIC: No reports of sweating, cold or heat intolerance. No polyuria or polydipsia. ALLERGIES: + History of bee venom allergy with anaphylaxis reaction. Vital Signs Vital Signs Vital Signs: 06/07/23 21:56 06/07/23 23:15 06/07/23 23:15 Temperature 97.6 F L Temperature Source Temporal Pulse Rate 78 Respiratory Rate 17 16 Blood Pressure 111/74 Blood Pressure Mean 86 Pulse Ox 96 99 99 Oxygen Delivery Method Room Air Room Air Room Air Physical Exam Narrative Physical Examination: General: Awake, alert, oriented x 3 and cooperative, seated upright in the ED bed, fatigued but improved appearance from prior per ED physician and patient as well as his . Skin: Flushed color, normal turgor, no icterus, no cyanosis. HEENT: AT/NC, EOMI, PERRLA, mildly dry MM, no carotid bruits or JVD noted. Lungs: Mildly diminished, greater bases, appropriate effort, no rales, ronchi or wheezing. Heart: Regular rate and rhythm; no gallop, rub audible. Abdomen: Soft, NTTP, no flank discomfort at this time, no marked distention, mildly hyperactive BS, no obvious HSM. Extremities: No cyanosis, clubbing, or edema. Neurological: Patient awake, alert, oriented as noted, cognitive function intact; pupils equally reactive to light and accommodation, cranial nerves II-XII grossly normal, moving all 4 extremities, no focal deficits, strength mildly to moderately global decreased, improved since prior ED evaluation Psychiatric: Affect appears flat, fatigued, no acute evidence of depressive or anxiety feelings. Results Lab / Micro Data 06/07/23 23:10 06/07/23 23:10 Labs: Laboratory Results - last 24 hr 06/07/23 23:10: Sodium 138, Potassium 3.8, Chloride 110 H, Carbon Dioxide 22.0, Anion Gap 6, BUN 32 H, Creatinine 1.40 H, Est GFR (MDRD) Af Amer 63, Est GFR (MDRD) Non-Af 52 L, BUN/Creatinine Ratio 22.9 H, Glucose 170 H, Calcium 8.9 Assessment & Plan Assessment/Plan (1) Bacteremia due to Gram-negative bacteria: PLAN: Plan The patient is a 77 y/o M w/ PMHx: Glaucoma, BPH, Raynauds disease, Former tobacco use, GERD, Cholelithiasis with chronic cholecystitis without biliary obstruction, recent ED presentation 06/06/2023 with onset of encephalopathy as well as nausea and emesis ongoing for approximately 3 days with then onset of rigors and chills with fever up to 102 at home with significant weakness and debility prompting family to call EMS with diagnosis at that time of acute kidney injury, acute complicated urinary tract infection as well as obstructing right ureteropelvic junction calculus causing mild to moderate right-sided hydronephrosis with eventual transfer 06/07/2023 early a.m. to [facility] where the patient's urologist practices Dr. Seaman reportedly having what would be assumed a right-sided stent placement and for some reason patient despite the fact he had a complicated UTI and acute kidney injury also was discharged to home and now represents to the [facility] ED on 06/07/23 secondary to being called with blood culture x2 positive. #1. Acute GNB Bacteremia secondary to Acute presumed GNB Complicated Urinary Tract Infection complicated by recent 12 x 10 mm right ureteropelvic junction calculus resulting in mild to moderate right-sided hydronephrosis s/p presumed R sided ureteral stent placement 06/07/23 AM: Will admit to [facility] as VS notable improved since recent presentation, pending UCx, prelim Blx Cx x 2 from initial presentation with GNB, continue judicious IVFs, monitor I/Os, continue IV Rocephin w/ transition as able pending sensitivities and speciation. Repeat Bld cx x 2 obtained in the ED. CBC and LA pending upon requested evaluation of patient. #2. BRUCE: Secondary to #1, recent admission with BUN/creatinine 29/1.77 with outside records noting a creatinine prior to this 0.8 as baseline. Current repeat presentation 06/07/2023 status post ureteral stent placement with repeat BUN/creatinine 32/1.40, certainly improving status post ureteral stent placement, will continue judicious IV fluids and repeat CMP in AM. #3. Hyperglycemia: Admission glucose 170, day prior upon initial presentation glucose 184, possibly stress response however to be cautious we will obtain hemoglobin A1c and if consistent with diabetes transition to ADA diet with Accu-Cheks with insulin sliding scale and nutrition consultation for education and teaching. #4. Cholelithiasis with chronic cholecystitis without biliary obstruction: Patient was supposed to have surgery 12/20 by surgeon in [facility] however upon attempted 12/19/2022 surgical intervention there was significant adhesions noted and the surgery was aborted with referral to tertiary facility for further surgical evaluation intervention potential. Current presentation with as noted previous CT with peripherally calcified structures in the joyce hepatis potentially representing choledocholithiasis however patient of note upon prior presentation with T. bili 1.40 otherwise unremarkable AST/ALT.will recommend continued outpatient follow-up with the surgeon to which she has been referred. #5. Raynaud's disease: Patient utilizes low-dose Norvasc but primarily in the winter when necessary for symptoms. #6. Glaucoma: We will continue patient home eyedrop regimen. #7. BPH: We will continue patient on Flomax regimen. #8. Former tobacco use: Encourage continued tobacco cessation #9. GERD: We have PRN mylanta. #10. DVT prophylaxis: SCDs, hold chemoprophylaxis given recent operative intervention, add 06/08/23. #11. CODE status: Patient HCPOA is his was and living will is currently in place. Full Code status. Charges/Coding Visit Charges Inpatient E&M: 87283 Init Hosp L3
[2023-06-07 23:55] LABS: Lactic Acid 1.6 mmol/L (0.4-1.9)
[2023-06-08] VITALS (7 sets, daily range): BP systolic 105–138; BP diastolic 63–80; PULSE 62–83; RESP 16–18; TEMP 36.6–37.1; O2SAT 93–98; BMI 29.4; BMI 29.0
[2023-06-08] MEDS: Ceftriaxone 1 GM/50 ML BAG IV ×2 (00:03→21:10)
[2023-06-08 00:08] LABS: Differential Indicated SCAN CRITERIA MET
[2023-06-08 00:14] LABS: Magnesium 2.2 mg/dL (1.6-2.6)
[2023-06-08 00:46] LABS: Differential Comment SCANNED
[2023-06-08] MEDS: 0.9% Normal Saline (1000mL) 1,000 ML 100 ML IV (02:00)
[2023-06-08] MEDS: 0.9% Saline Lock 10 ML Syringe IV ×2 (02:00→21:10)
[2023-06-08 07:56] LABS: Absolute Lymphocyte Count 0.68 X10^3/uL (0.83-4.51); Absolute Neutrophil Count 11.4 X10^3/uL (2.0-7.7); Basophil# 0.01 X10^3/uL; Basophil% 0.1 % (0-1); Hematocrit 34.6 % (40-54); Hemoglobin 11.5 g/dL (13.0-16.5); Lymphocyte # 0.68 X10^3/ul (0.83-4.51); Lymphocyte % 5.2 % (19-41); Mean Corp Hgb Conc 33.2 g/dL (32-36); Mean Corpuscular Hgb 29.3 pg (27.0-32.0); Mean Corpuscular Volume 88.3 fL (80-94); Mean Platelet Vol. 10.8 fl (6.2-12.0); Monocyte# 0.79 X10^3/uL; Monocyte% 6.1 % (0-10); NRBC Flagged by Analyzer 0 % (0-5); Neutrophil # 11.39 X10^3/uL (2.7-7.7); Neutrophil % 87.4 % (47-70); Platelet Count 123 K/mm3 (150-450); RBC Distribution Width CV 14.8 % (11.6-14.6); RBC Distribution Width SD 47.8 fl (35.1-43.9); Red Blood Count 3.92 M/mm3 (4.6-6.2)
[2023-06-08 08:14] LABS: ALB/GLOB Ratio 0.8 RATIO (0.9-2.4); AST(SGOT) 22 U/L (15-37); Alanine Aminotransfer ALT/SGPT 33 U/L (16-61); Albumin, Serum 2.4 g/dL (3.2-5.0); Alkaline Phosphatase 66 U/L (45-117); Anion Gap 5 (5-15); BUN 31 mg/dL (7-18); BUN/Creat Ratio 25.6 RATIO (10-20); Calcium,Total 8.7 mg/dL (8.5-10.1); Chloride 110 mmol/L (98-107); Creatinine, Serum 1.21 mg/dL (0.70-1.30); EST Glomerular Filtration Rate 62 mL/min (>60); Est Glom Filt Rate - Afr Amer 75 mL/min (>60); Estimated Creatinine Clearance 50.25 ml/min; Globulin 3.2 g/dL (2.2-4.2); Glucose 144 mg/dL (74-106); Potassium 3.8 mmol/L (3.5-5.1); Protein, Total 5.6 g/dL (6.4-8.2); Sodium Level 138 mmol/L (136-145)
[2023-06-08 08:50] LABS: Hemoglobin A1c 5.9 % (3.8-5.6)
[2023-06-08] MEDS: Tamsulosin HCl 0.4 MG Capsule PO (09:04)
[2023-06-08] MEDS: Pantoprazole Sodium 40 MG Tablet PO (10:23)
--- NOTE | 2023-06-08 11:30 | CASEMGMT ---
RN?CM?SCREED PERSON?CM?to room to meet with patient for initial transition planning/care coordination?assessment.?RN?CM?introduced self and role at [facility].? Pt voices understanding and consents to?assessment?at this time.? Pt resting in bed in no distress at this time.? Pt is A/O at this time and answers all questions appropriately.?? Care providers, pharmacy, and demographics verified/updated at this time. PCP: Dr Jsoy Cummings Specialists: Dr Seaman-urologist, DR Wilde-head start teacher Preferred Pharmacy: [facility] Insurance: [facility], MMO Prescription Benefit:?Yes Living Will/HPOA:?Has both LW and HCPOA, who is his , Ary. Son, Tone, is 1st alternative. brought in copies for pt's chart. They noticed address and phone #'s are different now and he would like to complete new AD, if possible. SHARON Hernandez, made aware. Pt and made aware if SW unable to complete while pt @ [facility], this can be completed as an OP. They voice understanding. LNOK: , Mary. Son, Tone. Pt has another adult child as well. Living Arrangements: Pt lives w/ in one-story home w/basement. Pt states does not have to go to the basement. 3 steps to enter home and pt states has no problems w/them. Pt is independent w/ADL's and manages his own medications and cooks occasionally. does most home mgnt tasks. Transportation:?Pt states drives self and states no transportation concerns at this time.? also drives. DME: ? Denies using any DME and denies needs.?? HHC/SNF: No hx of either. Denies needs and no needs identified. Pt wishes to return home and states has no concerns with going home at time of discharge.? CM?to follow for any discharge planning/needs.? Pt voices no further concerns/needs at this time.? Advised pt to ask for?CM?if any further questions/concerns/needs arise.? Voices understanding. PLAN:??Home DGiaualice BSN?RN?CM
--- NOTE | 2023-06-08 12:37 | PN.HOSP_ITS ---
Reason for Visit Reason for Visit: Diagnoses Bacteremia (06/07/23) Subjective Subjective Patient seen at bedside this morning. Sitting comfortably in bed, conversing normally, no acute distress. Patient is quite hard of hearing and had somewhat delayed responses due to this. Patient states that his low back pain has essentially resolved after stent placement yesterday. He denies any fevers or chills. Has had good urine output. Denies any chest pain or shortness of breath. Denies any lightheadedness or dizziness. No other acute concerns. Objective Data Objective Data Vital Signs: Vital Signs Temp Pulse Resp BP Pulse Ox O2 Del Method 98.3 F 62 18 132/71 H 98 Room Air 06/08/23 08:59 06/08/23 08:59 06/08/23 08:59 06/08/23 08:59 06/08/23 08:59 06/08/23 09:02 Oxygen Delivery Method Room Air Weight: 86.636 kg Body Mass Index (BMI) 29.0 Intake & Output: Intake and Output for Last 24 Hours 06/06/23 06/07/23 06/08/23 23:59 23:59 23:59 Intake Total 1050 / 1050 Output Total 300 / 300 Balance 750 / 750 Lab / Micro Data 06/08/23 06:37 06/08/23 06:37 Labs: Laboratory Results - last 24 hr 06/07/23 23:10: WBC 13.5 H, RBC 4.11 L, Hgb 12.0 L, Hct 36.5 L, MCV 88.8, MCH 29.2, MCHC 32.9, RDW Std Deviation 48.3 H, RDW Coeff of Jonna 14.8 H, Plt Count 118 L, MPV 10.8, Immature Gran % (Auto) 1.000 H, Neut % (Auto) 92.4 H, Lymph % (Auto) 3.4 L, Buchanan % (Auto) 3.1, Eos % (Auto) 0.0, Baso % (Auto) 0.1, Absolute Neuts (auto) 12.5 H, Absolute Lymphs (auto) 0.46 L, Nucleated RBC % 0, Diff erential Comment SCANNED, Sodium 138, Potassium 3.8, Chloride 110 H, Carbon D ioxide 22.0, Anion Gap 6, BUN 32 H, Creatinine 1.40 H, Est GFR (MDRD) Af Amer 63, Est GFR (MDRD) Non-Af 52 L, BUN/Creatinine Ratio 22.9 H, Glucose 170 H, Calcium 8.9, Magnesium 2.2 06/07/23 23:25: Lactic Acid 1.6 06/08/23 06:37: WBC 13.0 H, RBC 3.92 L, Hgb 11.5 L, Hct 34.6 L, MCV 88.3, MCH 29.3, MCHC 33.2, RDW Std Deviation 47.8 H, RDW Coeff of Jonna 14.8 H, Plt Count 123 L, MPV 10.8, Immature Gran % (Auto) 1.200 H, Neut % (Auto) 87.4 H, Lymph % (Auto) 5.2 L, Buchanan % (Auto) 6.1, Eos % (Auto) 0.0, Baso % (Auto) 0.1, Absolute Neuts (auto) 11.4 H, Absolute Lymphs (auto) 0.68 L, Nucleated RBC % 0, Sodium 138, Potassium 3.8, Chloride 110 H, Carbon Dioxide 23.0, Anion Gap 5, BUN 31 H, Creatinine 1.21, Estim Creat Clear Calc 50.25, Est GFR (MDRD) Af Amer 75, Est GFR (MDRD) Non-Af 62, BUN/Creatinine Ratio 25.6 H, Glucose 144 H, Hemoglobin A1c 5.9 H, Calcium 8.7, Total Bilirubin 0.50, AST 22, ALT 33, Alkaline Phosphatase 66, Total Protein 5.6 L, Albumin 2.4 L, Globulin 3.2, Albumin/Globulin Ratio 0.8 L Physical Exam Const alert, oriented x3, no apparent distress, average body habitus, healthy appearing and well nourished Constitutional Narrative: Pleasant elderly male, sitting comfortably in bed, no acute distress. Hard of hearing leading to somewhat delayed responses, otherwise conversing normally. General Appearance: cooperative, comfortable, well kempt and well developed HEENT normocephalic, head/scalp atraumatic, hearing grossly normal bilaterally, nasal mucous membranes and turbinates normal and moist oral mucous membranes Eyes PERRL, EOMs intact bilaterally and conjunctivae normal Neck full ROM, no lymphadenopathy and supple Lymph Lymphatic: no lymphadenopathy noted Chest inspection of chest normal Resp normal respiratory effort, normal air movement, no use of accessory muscles and clear to auscultation bilaterally Cardio regular rate, regular rhythm, no murmurs and peripheral pulses 2+ throughout GI normal to inspection, nondistended, normoactive bowel sounds, soft to palpation, non-tender and non-distended Back/Spine normal ROM Extremity normal to inspection, full ROM and no pedal edema Skin no rashes or lesions noted Psych mental status grossly normal Assessment & Plan Assessment/Plan (1) Complicated UTI (urinary tract infection): PLAN: Plan Patient is a 77-year-old male with history of BPH, GERD and chronic low cystitis 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 Patient was found to have a complicated UTI with obstructing right ureteropelvic junction calculus causing mild to moderate right-sided hydronephrosis. Was transferred to [facility] for urgent right-sided ureteral stent placement, as [facility] had no urology in house at the time. For unclear reasons, was discharged home from [facility] on 06/07. Presented again to [facility] on evening of 06/07 after receiving called that his blood cultures were positive for gram- negative bacteria. 1. Gram-negative jose bacteremia Secondary to complicated UTI as noted below. Blood cultures 06/06 growing gram- negative rods, speciation and sensitivities pending. ? Continue ceftriaxone, narrow as able. ID consulted for further recommendations. 2. Complicated UTI, right-sided renal calculus CT abdomen pelvis with IV contrast on admit showed a 12 x 10 mm right ureteropelvic junction calculus resulting in mild to moderate right-sided hydronephrosis. UA showed 500 leukocyte esterase, negative nitrites, 3+ bacteria. Patient was transferred to OSH for ureteral stent placement on 06/07 as noted above. Had significant resolution of pain and discomfort with stent placement. Has had good urine output. ? Continue ceftriaxone as above. Urine culture pending. ID consulted as above. Will need outpatient follow-up with urology. 3. BRUCE, resolving ? Likely prerenal secondary to infection as noted above. Creatinine 1.77 on admission, improved to 1.2. Baseline is unknown. Good urine output. Monitor BMP daily. Monitor urine output. 4. Mild thrombocytopenia ? Platelets 118-137 since admission. No known baseline. May be secondary to acute infection as above. Monitor. Chronic medical conditions: ? BPH: Continue home Flomax. ? Glaucoma: Continue home medications. ? GERD: Continue home PPI. DVT prophylaxis: Lovenox CODE STATUS: Full code, verified Expected disposition: Home, 1 to 2 days Total clinical time spent by myself addressing the patient's medical issues, reviewing all the data, and collaborating with patient's care team: 35 minutes. Charges/Coding Visit Charges Inpatient E&M: 59034 Subs Hosp L2
[2023-06-08] MEDS: Acetaminophen 325 MG Tablet 650 MG PO (20:12)
[2023-06-08] MEDS: Latanoprost 0.005% 1 Bottle 1 DRP EACH EYE (21:11)
[2023-06-09 02:20] VITALS: BP 145/83; PULSE 78; RESP 16; TEMP 36.9; O2SAT 96
[2023-06-09] MEDS: Acetaminophen 325 MG Tablet 650 MG PO (02:41)
[2023-06-09 08:07] VITALS: O2SAT 94
[2023-06-09 08:20] LABS: Hematocrit 38.4 % (40-54); Hemoglobin 12.6 g/dL (13.0-16.5); Mean Corp Hgb Conc 32.8 g/dL (32-36); Mean Corpuscular Hgb 29.1 pg (27.0-32.0); Mean Corpuscular Volume 88.7 fL (80-94); Mean Platelet Vol. 9.8 fl (6.2-12.0); Platelet Count 138 K/mm3 (150-450); RBC Distribution Width CV 14.6 % (11.6-14.6); RBC Distribution Width SD 47.3 fl (35.1-43.9); Red Blood Count 4.33 M/mm3 (4.6-6.2); White Blood Count 10.2 K/mm3 (4.4-11.0)
[2023-06-09 08:49] LABS: Anion Gap 5 (5-15); BUN 27 mg/dL (7-18); BUN/Creat Ratio 23.7 RATIO (10-20); Calcium,Total 8.1 mg/dL (8.5-10.1); Chloride 108 mmol/L (98-107); Creatinine, Serum 1.14 mg/dL (0.70-1.30); EST Glomerular Filtration Rate 66 mL/min (>60); Est Glom Filt Rate - Afr Amer 80 mL/min (>60); Estimated Creatinine Clearance 53.33 ml/min; Glucose 95 mg/dL (74-106); Potassium 3.5 mmol/L (3.5-5.1); Sodium Level 136 mmol/L (136-145)
[2023-06-09 09:20] VITALS: BP 149/70; PULSE 85; RESP 18; TEMP 37.2; O2SAT 96
[2023-06-09] MEDS: Tamsulosin HCl 0.4 MG Capsule PO (09:27)
[2023-06-09] MEDS: Enoxaparin 40 MG/0.4 ML Syringe SC (09:27)
[2023-06-09] MEDS: Pantoprazole Sodium 40 MG Tablet PO (09:27)
--- NOTE | 2023-06-09 11:59 | PCM.PN.HOSP ---
Reason for Visit Reason for Visit: Diagnoses Urinary tract infection, site not specified (06/07/23) Bacteremia (06/07/23) Subjective Subjective No acute events overnight. Patient seen at bedside this morning. Laying comfortably in bed, conversing normally, no acute distress. Patient states that he has mild lower abdominal pain this morning, slightly worse than yesterday. Denies any suprapubic tenderness. Has been getting up from bed and going to the bathroom on his own without issue. Reports good urine output and denies any pain or discomfort with urination. Denies any dizziness or lightheadedness with going from sitting to standing. Denies any fevers or chills. Overall states that he feels somewhat fatigued but improved from admission. No other acute concerns. Objective Data Objective Data Vital Signs: Vital Signs Temp Pulse Resp BP Pulse Ox O2 Del Method 99 F 85 18 149/70 H 96 Room Air 06/09/23 09:20 06/09/23 09:20 06/09/23 09:20 06/09/23 09:20 06/09/23 09:20 06/09/23 09:23 Oxygen Delivery Method Room Air Weight: 86.636 kg Body Mass Index (BMI) 29.0 Intake & Output: Intake and Output for Last 24 Hours 06/07/23 06/08/23 06/09/23 23:59 23:59 23:59 Intake Total 1100 / 1100 Output Total 1900 / 2400 1999 Balance -800 / -1300 -1999 / Lab / Micro Data 06/09/23 07:50 06/09/23 07:50 Labs: Laboratory Results - last 24 hr 06/09/23 07:50: WBC 10.2, RBC 4.33 L, Hgb 12.6 L, Hct 38.4 L, MCV 88.7, MCH 29.1, MCHC 32.8, RDW Std Deviation 47.3 H, RDW Coeff of Jonna 14.6, Plt Count 138 L, MPV 9.8, Sodium 136, Potassium 3.5, Chloride 108 H, Carbon Dioxide 23.0, Anion Gap 5, BUN 27 H, Creatinine 1.14, Estim Creat Clear Calc 53.33, Est GFR (MDRD) Af Amer 80, Est GFR (MDRD) Non-Af 66, BUN/Creatinine Ratio 23.7 H, Glucose 95, Calcium 8.1 L Physical Exam Const alert, oriented x3, no apparent distress, average body habitus, healthy appearing and well nourished Constitutional Narrative: Pleasant elderly male, sitting comfortably in bed, no acute distress. Hard of hearing leading to somewhat delayed responses, otherwise conversing normally. General Appearance: cooperative, comfortable, well kempt and well developed HEENT normocephalic, head/scalp atraumatic, hearing grossly normal bilaterally, nasal mucous membranes and turbinates normal and moist oral mucous membranes Eyes PERRL, EOMs intact bilaterally and conjunctivae normal Neck full ROM, no lymphadenopathy and supple Lymph Lymphatic: no lymphadenopathy noted Chest inspection of chest normal Resp normal respiratory effort, normal air movement, no use of accessory muscles and clear to auscultation bilaterally Cardio regular rate, regular rhythm, no murmurs and peripheral pulses 2+ throughout GI normal to inspection, nondistended, normoactive bowel sounds, soft to palpation, non-tender and non-distended GI Narrative: No suprapubic tenderness noted. 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 Patient was found to have a complicated UTI with obstructing right ureteropelvic junction calculus causing mild to moderate right-sided hydronephrosis. Was transferred to [facility] for urgent right-sided ureteral stent placement, as [facility] had no urology in house at the time. For unclear reasons, was discharged home from [facility] on 06/07. Presented again to [facility] on evening of 06/07 after receiving called that his blood cultures were positive for gram-negative bacteria. 1. Gram-negative jose bacteremia Secondary to complicated UTI as noted below. Blood cultures 06/06 growing gram-negative rods, speciation and sensitivities pending. Urine culture 06/10 growing Proteus mirabilis, sensitive to ceftriaxone. ? Continue ceftriaxone for now. ID consulted for further recommendations. 2. Complicated UTI, right-sided renal calculus CT abdomen pelvis with IV contrast on admit showed a 12 x 10 mm right ureteropelvic junction calculus resulting in mild to moderate right-sided hydronephrosis. UA showed 500 leukocyte esterase, negative nitrites, 3+ bacteria. Patient was transferred to OSH for ureteral stent placement on 06/07 as noted above. Had significant resolution of pain and discomfort with stent placement. Has had good urine output. ? Continue ceftriaxone as above. ID consulted as above. Will need outpatient follow-up with urology. 3. BRUCE, resolving ? Likely prerenal secondary to infection as noted above. Creatinine 1.77 on admission, improved to 1.1. Baseline is unknown. Good urine output. Monitor BMP daily. Monitor urine output. 4. Mild thrombocytopenia ? Platelets 118-137 since admission. No known baseline. May be secondary to acute infection as above. Monitor. Chronic medical conditions: ? BPH: Continue home Flomax. ? Glaucoma: Continue home medications. ? GERD: Continue home PPI. DVT prophylaxis: Lovenox CODE STATUS: Full code, verified Expected disposition: Home, 1 to 2 days Total clinical time spent by myself addressing the patient's medical issues, reviewing all the data, and collaborating with patient's care team: 35 minutes. Charges/Coding Visit Charges Inpatient E&M: 02063 Subs Hosp L2
[2023-06-09 14:13] VITALS: BP 148/77; PULSE 73; RESP 18; TEMP 37.4; O2SAT 98
[2023-06-09 20:26] VITALS: BP 148/86; PULSE 86; RESP 16; TEMP 37.3; O2SAT 97
[2023-06-09] MEDS: Ceftriaxone 1 GM/50 ML BAG IV (21:09)
[2023-06-09] MEDS: 0.9% Saline Lock 10 ML Syringe IV (21:09)
[2023-06-09] MEDS: Latanoprost 0.005% 1 Bottle 1 DRP EACH EYE (21:10)
[2023-06-10 02:30] VITALS: BP 159/79; PULSE 77; RESP 16; TEMP 37.1; O2SAT 95
[2023-06-10] MEDS: Acetaminophen 325 MG Tablet 650 MG PO (03:31)
[2023-06-10 06:00] VITALS: BMI 29.5
[2023-06-10 08:30] VITALS: O2SAT 95
[2023-06-10 09:00] VITALS: BP 160/82; PULSE 78; RESP 18; TEMP 36.8; O2SAT 98
--- NOTE | 2023-06-10 09:32 | DCINST_ITS ---
Discharge Instructions Diet Discharge Diet: No restrictions Activity Discharge Activity: Return to Normal Activity Dressing / Incision Call your doctor if you observe: Fever of 101 or Higher, Shortness of breath, Dizziness, Fainting spells, Swelling in the ankles, Chest pain and Increased palpitations (irregular heartbeat) Follow Up Care Test Results: Test results from this visit will be discussed in further detail at your follow- up appointment, if applicable. Discharge Plan Admission Admit Date/Time: 06/07/23 23:45 Attending Provider: Carlos Alberto Tran Primary Care Provider: Josy Cummings Consulting Providers: Louann Montes; Ivan Ferreira Instructions Additional Instructions / Restrictions: Call your urologist and schedule the outpatient appointment for this week for possible lithotripsy. Discharge Orders/Prescriptions Prescriptions: New cefdinir 300 mg capsule 300 mg PO BID 10 Days Qty: 20 0RF Continued tamsulosin [Flomax] 0.4 mg capsule 0.4 mg PO DAILY Lumigan 0.01 % drops 1 drp EACH EYE DAILY amlodipine 2.5 mg tablet 2.5 mg PO PRN (Reason: raynauds) esomeprazole magnesium 40 mg capsule,delayed release(DR/EC) 40 mg PO Q24H Patient Comments: TAKE 1 CAPSULE BY MOUTH EVERY DAY Rhopressa 0.02 % drops ophthalmic (eye) QHS Patient Comments: 1 drop in right eye nightly phenazopyridine [Pyridium] 200 mg tablet 200 mg PO BID PRN (Reason: bladder spasms) HYDROcodone-acetaminophen Discontinued ciprofloxacin HCl 500 mg tablet 500 mg PO BID Referrals / Follow Up: Josy Cummings DO [Primary Care Provider] - Within 1 Week Disposition Disposition (needs filled in before D/C Order can be placed): Home, Self Care
--- NOTE | 2023-06-10 10:03 | PHA.DC_ITS ---
Pharmacy [facility] has performed discharge medication reconciliation and counseling for this patient. The patient's discharge medication list was reviewed for discrepancies and discrepancies were resolved. The patient was counseled on the following discharge medications and changes in medications for homegoing were reviewed. The Reason for Use, instructions for use, and potential side effects were reviewed for all new medications. The patient's questions regarding all of their medications were answered. The patient was counselled on new medication cefdinir 300 mg oral capsule BID x 11 doses. The patient was able to verbally demonstrate an understanding of their discharge medications. Medications at Discharge Home Medications bimatoprost 0.01 % eye drops (Lumigan) 1 drp EACH EYE DAILY eyes 06/06/23 tamsulosin 0.4 mg capsule (Flomax) 0.4 mg PO DAILY prostate 06/06/23 HYDROcodone-acetaminophen pain 06/08/23 amlodipine 2.5 mg tablet 2.5 mg PO PRN raynauds 06/08/23 esomeprazole magnesium 40 mg capsule,delayed release 40 mg PO Q24H stomach 06/08/23 netarsudil 0.02 % eye drops (Rhopressa) drp ophthalmic (eye) QHS rt eye only 06/08/23 phenazopyridine 200 mg tablet (Pyridium) 200 mg PO BID PRN bladder spasms 06/08/23 cefdinir 300 mg capsule 300 mg PO BID 10 days #20 caps 06/10/23
[2023-06-10] MEDS: Tamsulosin HCl 0.4 MG Capsule PO (10:28)
[2023-06-10] MEDS: Enoxaparin 40 MG/0.4 ML Syringe SC (10:28)
[2023-06-10] MEDS: Pantoprazole Sodium 40 MG Tablet PO (10:28)
--- NOTE | 2023-06-10 11:24 | CASEMGMT ---
VIKAS CM into pt room, pt sitting up in bed with at bedside. Pt denies any homegoing needs and states he is ready to go home.
--- NOTE | 2023-06-10 12:08 | CASEMGMT ---
Social Work SW assisted pt in completing updated living will and health care POA naming his Ary So. Originals given to pt and copy placed on pt chart. MARGI Matthews
[2023-06-10 12:32] VITALS: BP 155/70; PULSE 88; RESP 18; TEMP 36.8; O2SAT 98
--- NOTE | 2023-06-10 15:33 | PCM.DC.SUM ---
Providers Date of Admission: 06/07/23 Primary Care Physician: Dr. Josy Cummings DO Reason For Visit: BACTERMIA, BRUCE, COMPLICATED UTI,URETERAL OBSTRUCT Diagnosis Discharge Diagnosis (1) Complicated UTI (urinary tract infection): Status: Acute Code(s): N39.0 - Urinary tract infection, site not specified Medications at Discharge Home Medications bimatoprost 0.01 % eye drops (Lumigan) 1 drp EACH EYE DAILY eyes 06/06/23 tamsulosin 0.4 mg capsule (Flomax) 0.4 mg PO DAILY prostate 06/06/23 HYDROcodone-acetaminophen pain 06/08/23 amlodipine 2.5 mg tablet 2.5 mg PO PRN raynauds 06/08/23 esomeprazole magnesium 40 mg capsule,delayed release 40 mg PO Q24H stomach 06/08/23 netarsudil 0.02 % eye drops (Rhopressa) drp ophthalmic (eye) QHS rt eye only 06/08/23 phenazopyridine 200 mg tablet (Pyridium) 200 mg PO BID PRN bladder spasms 06/08/23 cefdinir 300 mg capsule 300 mg PO BID 10 days #20 caps 06/10/23 Hospital Course Operations None Procedures None Summary of Care Provided Minutes Spent on Discharge: 36 Hospital Course: Per HPI: The patient is a 77 y/o M w/ PMHx: Glaucoma, BPH, Raynauds disease, Former tobacco use, GERD, Cholelithiasis with chronic cholecystitis without biliary obstruction, recent ED presentation 06/06/2023 with onset of encephalopathy as well as nausea and emesis ongoing for approximately 3 days with then onset of rigors and chills with fever up to 102 at home with significant weakness and debility prompting family to call EMS with diagnosis at that time of acute kidney injury, acute complicated urinary tract infection as well as obstructing right ureteropelvic junction calculus causing mild to moderate right-sided hydronephrosis with eventual transfer 06/07/2023 early a.m. to [facility] where the patient's urologist practices Dr. Seaman reportedly having what would be assumed a right-sided stent placement and for some reason patient despite the fact he had a complicated UTI and acute kidney injury also was discharged to home and now represents to the [facility] ED on 06/07/23 secondary to being called with blood culture x2 positive. He notes pain since stent placement completely resolved. Recent ED evaluation 06/06/2023 with at that time temperature 102.4, heart rate 110, BP dropping to 85/55 requiring IV fluids and prior to transition to outside facility increased up to 118/71, initially respiratory rate 26 noted to be 88% on room air and upon transition to outside facility respiratory rate 18, 99% on room air, CBC with WBC 11.4, hemoglobin 13.7, platelet 137 with left shift and lymphopenia, coags with PT 17.3, PTT 38.2 otherwise not marked appearing, CMP with sodium 135, potassium 3.4, BUN/creatinine 29/1.77, glucose 184, lactic acid 1.8, T. bili 1.40 otherwise hepatic profile not marked appearing, lipase 16, urinalysis highly concerning for urinary tract infection with urine culture pending still at this time and blood cultures x2 obtained, rapid SARS COVID-negative, chest x-ray with no acute cardiopulmonary findings, CT A/P with 12 x 10 mm right ureteropelvic junction calculus resulting in mild to moderate right-sided hydronephrosis, additional nonobstructing bilateral renal calculi, simple appearing bilateral renal cysts, peripherally calcified structures in the joyce hepatis potentially representing choledocholithiasis with recommended follow-up MRCP, descending and sigmoid colonic diverticulosis without diverticulitis evident, emphysematous changes at the lung bases with bibasilar scarring versus atelectasis, small fat-containing umbilical hernia without bowel involvement, EKG with sinus tachycardia with no acute evidence of ischemia. Patient was administered IV Rocephin and serial IV fluid boluses secondary to hypotension. Patient's urologist Dr. Seaman was contacted given he has been under his care and is known to his service with transition eventually ER to the OR at [facility] as a same-day surgery patients. Patient upon current presentation with T97.6, heart rate 78, BP 111/74, respiratory rate 17, 96% on room air, current micro with blood culture preliminarily x 2 with noted gram-negative bacilli, BMP with chloride 110, BUN/creatinine 22/1.40, glucose 170, Lactic acid, repeat Bld Cx x 2 and CBC pending upon requested evaluation of patient. In the ED patient readministered IV rocephin and judicious IVFs. Hospital Course: 1. Proteus UTI with bacteremia in the setting of a right-sided renal calculus/BRUCE?77-year-old male presented to the hospital after having a stent placed by his urologist. He was discharged after the procedure on ciprofloxacin but had altered mental status and continued to decline so he presented to this hospital with urine cultures demonstrated gram-negative jose bacteremia. On admission here he was started on Rocephin and his urine culture demonstrated Proteus that was fairly sensitive and was sensitive to Rocephin. He has improved significantly as evidenced by his improving white count. His BRUCE has completely resolved and his renal function is back to baseline. Given his bacteremia recommend another 10 days of p.o. cefdinir with outpatient follow-up with his urologist for definitive treatment of this renal calculus. I also recommend that he follow-up with his PCP in 3 to 5 days for outpatient monitoring. I discussed with him the need to return to the hospital if he develops any more fevers or other signs of worsening infection. 2. Benign prostatic hypertrophy, glaucoma, GERD are chronic medical conditions which complicate his care. His home medications were continued where appropriate Physical Exam Narrative General: Alert, Oriented x3, Cooperative, No apparent distress HEENT: Atraumatic, PERRLA, EOMI, Normocephalic Oral: Moist Mucosa Neck: Supple, No JVD Lungs: Clear to auscultation, Normal air movement, No rhonchi, No wheeze, No rales Cardiovascular: Regular rate, Regular Rhythm, Normal S1, Normal S2, No murmurs Abdomen: Soft, Non Tender, Non-Distended, No Hepato-splenomegaly Extremities: No edema, Capillary Refill Less than 3 Seconds Skin: No rashes, No breakdown Musculoskeletal: No Tenderness to Palpation of Joints or Extremities Neurological: Cranial nerves II-XII grossly intact, Motor Exam 5/5 strength throughout, Sensory exam intact to light touch and pain Psych/Mental Status: Normal Affect, Appropriate Weight / BMI Weight Weight: 194 lb 10.691 oz Body Mass Index (BMI) 29.5 ABG / Lab / Microbiology Data 06/09/23 07:50 06/09/23 07:50 Microbiology: Microbiology 06/07/23 22:27 Blood Culture (Wb) - Anticubital Left Blood Culture - Preliminary No growth in 48 hours. D/C Instructions Discharge Diet: No restrictions Call your doctor if you observe: Fever of 101 or Higher, Shortness of breath, Dizziness, Fainting spells, Swelling in the ankles, Chest pain and Increased palpitations (irregular heartbeat) Meaningful Use Info Meaningful Use Diagnoses (Choose all that apply): None applicable Discharge Plan Admission Admit Date/Time: 06/07/23 23:45 Attending Provider: Carlos Alberto Tran Primary Care Provider: Josy Cummings Consulting Providers: Louann Montes; Ivan Ferreira Instructions Additional Instructions / Restrictions: Call your urologist and schedule the outpatient appointment for this week for possible lithotripsy. Discharge Orders/Prescriptions Prescriptions: New cefdinir 300 mg capsule 300 mg PO BID 10 Days Qty: 20 0RF Continued tamsulosin [Flomax] 0.4 mg capsule 0.4 mg PO DAILY Lumigan 0.01 % drops 1 drp EACH EYE DAILY amlodipine 2.5 mg tablet 2.5 mg PO PRN (Reason: raynauds) esomeprazole magnesium 40 mg capsule,delayed release(DR/EC) 40 mg PO Q24H Patient Comments: TAKE 1 CAPSULE BY MOUTH EVERY DAY Rhopressa 0.02 % drops ophthalmic (eye) QHS Patient Comments: 1 drop in right eye nightly phenazopyridine [Pyridium] 200 mg tablet 200 mg PO BID PRN (Reason: bladder spasms) HYDROcodone-acetaminophen Discontinued ciprofloxacin HCl 500 mg tablet 500 mg PO BID Referrals / Follow Up: Josy Cummings DO [Primary Care Provider] - Within 1 Week Disposition Disposition (needs filled in before D/C Order can be placed): Home, Self Care Charges/Coding Visit Charges Inpatient E&M: 99240 Disch Hosp >30min
== END 2023-06-10 12:30 | disposition home or self-care (01) | DRG 872 ==
LOC: ED 23:16 → MS3 06-08 00:31
PROVIDERS: Hospitalist; Admitting Provider Family Medicine; Emergency Provider Emergency Medicine; PCP Internal Medicine; Visit Provider Family Medicine
DX: A41.59 Other Gram-negative sepsis (principal); N17.9 Acute kidney failure, unspecified; K80.10 Calculus of gallbladder with chronic cholecystitis without obstruction; N13.6 Pyonephrosis; D69.6 Thrombocytopenia, unspecified; I73.00 Raynaud's syndrome without gangrene; K21.9 Gastro-esophageal reflux disease without esophagitis; K57.30 Diverticulosis of large intestine without perforation or abscess without bleeding; R73.9 Hyperglycemia, unspecified; N40.0 Benign prostatic hyperplasia without lower urinary tract symptoms; H40.9 Unspecified glaucoma; H91.93 Unspecified hearing loss, bilateral; Z79.899 Other long term (current) drug therapy; Z87.891 Personal history of nicotine dependence
CPT/HCPCS: 36415; 71045; 74176; 80048; 80053; 81001; 83036; 83605; 83690; 83735; 85025; 85027; 85610; 85730; 87040; 87077; 87086; 87088; 87186; 87811; 93005; 94668; 94760; 96361; 96365; 96366; 96375; 99252; 99285; J7030; J7050; A4216; G0463